=== PATIENT | male | born 1985 ===

== ENCOUNTER 2018-01-14 12:14 | Emergency (ER) | payer OTHER ==
[2018-01-14 12:15] VITALS: BMI 27.3
[2018-01-14 12:27] VITALS: RESP 16; TEMP 98; O2SAT 98
[2018-01-14] MEDS ORDERED: Oxycodone/Acetaminophen 5/325 mg Tab PO STA ×2 (12:32→13:28)
[2018-01-14] MEDS ORDERED: Oxycodone/Acetaminophen 5/325 mg Tab ONE ×2 (12:35→13:30)
[2018-01-14] MEDS ORDERED: Tetanus/Diphtheria Toxoids 0.5 ml Syringe IM ONE ×2 (12:45→12:49)
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
[2018-01-14 13:37] VITALS: BP 108/72; PULSE 85
== END 2018-01-14 13:36 | disposition home or self-care (01) ==
LOC: C.ER 12:14
DX: T20.20XA Burn of second degree of head, face, and neck, unspecified site, initial encounter (principal); T22.20XA Burn of second degree of shoulder and upper limb, except wrist and hand, unspecified site, initial encounter; X19.XXXA Contact with other heat and hot substances, initial encounter; Y92.89 Other specified places as the place of occurrence of the external cause; Z23 Encounter for immunization